=== PATIENT | female | born 1940 | race Caucasian/White ===

== ENCOUNTER 2024-06-08 13:23 | Inpatient (IN) | payer MEDICARE ==
[~2024-06-08] VITALS: Ht 154.9 cm; Wt 77.1 kg
[2024-06-08 13:51] VITALS: BP 115/65
[2024-06-08 14:04] LABS: BASO % 0.4 % (0.0-1.0); EOS # 0.1 10*3/uL (0.0-0.4); EOS % 2.5 % (1.0-4.0); HEMATOCRIT 31.2 % (37.0-47.0); LYMPH # 1.2 10*3/uL (1.3-4.4); LYMPH % 23.9 % (27.0-41.0); MEAN CELL VOLUME 95.4 fl (81.0-99.0); MEAN CORPUSCULAR HGB 30.6 pg (27.0-31.0); MEAN CORPUSCULAR HGB CONC 32.1 g/dl (33.0-37.0); MEAN PLATELET VOLUME 9.6 fl (9.6-12.3); MONO # 0.5 10*3/uL (0.1-1.0); MONO % 10.4 % (3.0-9.0); NEUT # 3.2 10*3/uL (2.3-7.9); NEUT % 62.4 % (47.0-73.0); PLATELET COUNT AUTOMATED 171 10*3/uL (130-400); RED BLOOD COUNT 3.27 10*6/uL (4.10-5.10); WHITE BLOOD COUNT 5.1 10*3/uL (4.8-10.8)
[2024-06-08 14:16] LABS: BILIRUBIN Negative (Negative); BLOOD Negative (Negative); CLARITY Clear (Clear); COLOR Yellow (Yellow); GLUCOSE Negative (Negative); KETONE Negative (Negative); LEUKO ESTERASE 3+ (Negative); NITRITE Positive (Negative); SPECIFIC GRAVITY 1.015 (1.001-1.030)
[2024-06-08 14:23] LABS: URINE AMPHETAMINES Negative (1000ng/ml); URINE BARBITURATES Negative (200ng/ml); URINE BENZODIAZEPINES Negative (200ng/ml); URINE CANNABINOIDS (THC) Negative (50ng/ml); URINE COCAINE Negative (300ng/ml); URINE METHADONE Negative (300ng/ml); URINE OPIATES Negative (300ng/ml); URINE PHENCYCLIDINE Negative (25ng/ml)
[2024-06-08 14:24] LABS: BUN 34 mg/dl (9-23); CHLORIDE 107 mmol/L (98-107); POTASSIUM 4.3 mmol/L (3.4-5.1)
[2024-06-08 14:34] LABS: ETHYL ALCOHOL < 3.0 mg/dl (<3)
[2024-06-08 14:39] LABS: BACTERIA 4+; WBC 31-40 wbc/hpf (0-5)
[2024-06-08] MEDS ORDERED: Sulfamethoxazole/Trimethopri 1 TAB TAB PO ONE (15:05)
[2024-06-08] MEDS ORDERED: ASPIRIN ADULT L81 M1 PO (16:13)
[2024-06-08] MEDS ORDERED: LIPITOR40 MG PO (16:15)
[2024-06-08] MEDS ORDERED: LASIX40 MG PO ×2 (16:15→16:19)
[2024-06-08] MEDS ORDERED: B121000 MCG/1 IM (16:27)
[2024-06-08] MEDS ORDERED: FORMOTEROL20 MCG/2 M NEB (16:31)
[2024-06-08] MEDS ORDERED: LOPRESSOR50 M1 PO (16:32)
[2024-06-08] MEDS ORDERED: KLOR-CON M2020 ME1 PO (16:35)
[2024-06-08] MEDS ORDERED: RIVASTIGMINE TAR3 M1 PO (16:38)
[2024-06-08] MEDS ORDERED: DEPAKOTE SPRIN125 MG PO (16:39)
[2024-06-08] MEDS ORDERED: TYLENOL325 M1 PO (16:41)
[2024-06-08] MEDS ORDERED: ALBUTEROL2.5 MG/0.5 INH (16:46)
[2024-06-08] MEDS ORDERED: ATIVAN1 MG PO ×2 (16:51→17:06)
[2024-06-08] MEDS ORDERED: ATIVAN0.5 MG PO (17:05)
[2024-06-08] MEDS ORDERED: MELATONIN3 MG PO (17:08)
[2024-06-08] MEDS ORDERED: ADT ROBITUSSIN237 M1 PO (17:12)
[2024-06-08] MEDS ORDERED: MILK OF MA400 MG/53 PO (17:15)
[2024-06-08] MEDS ORDERED: LORazepam 1 MG TAB PO PRN (17:20)
[2024-06-08] MEDS ORDERED: Albuterol Sulfate 2.5 MG/3 ML VIAL NEB PRN (19:05)
[2024-06-08] MEDS ORDERED: ACETAMINOPHEN 325 MG TAB PO PRN (19:05)
[2024-06-08] MEDS ORDERED: Albuterol Sulfate 2.5 MG/3 ML VIAL NEB SCH (19:15)
[2024-06-08] MEDS ORDERED: Ziprasidone Mesylate 20 MG VIAL IM PRN (19:25)
[2024-06-08] MEDS ORDERED: Water, Sterile 10 ML VIAL ONE (19:51)
[2024-06-08 20:00] VITALS: BP 107/73
[2024-06-08] MEDS ORDERED: DIVALPROEX SODIUM 125 MG CAP PO SCH (21:00)
[2024-06-08] MEDS ORDERED: Rivastigmine Tartrate 1.5 MG CAP PO SCH (21:09)
[2024-06-08] MEDS ORDERED: Memantine Hydrochloride 5 MG TAB PO SCH (22:00)
[2024-06-08] MEDS ORDERED: BREXPIPRAZOLE 1 MG TABLET PO SCH (22:00)
[2024-06-09 06:44] LABS: BASO % 0.4 % (0.0-1.0); EOS # 0.1 10*3/uL (0.0-0.4); EOS % 2.4 % (1.0-4.0); HEMATOCRIT 33.2 % (37.0-47.0); LYMPH # 1.1 10*3/uL (1.3-4.4); LYMPH % 23.7 % (27.0-41.0); MEAN CELL VOLUME 97.1 fl (81.0-99.0); MEAN CORPUSCULAR HGB 30.1 pg (27.0-31.0); MEAN PLATELET VOLUME 9.5 fl (9.6-12.3); MONO # 0.5 10*3/uL (0.1-1.0); MONO % 11.4 % (3.0-9.0); NEUT # 2.9 10*3/uL (2.3-7.9); NEUT % 61.9 % (47.0-73.0); PLATELET COUNT AUTOMATED 159 10*3/uL (130-400); RED BLOOD COUNT 3.42 10*6/uL (4.10-5.10); RED CELL DISTRI WIDTH 15.8 % (0-14.5); WHITE BLOOD COUNT 4.7 10*3/uL (4.8-10.8)
[2024-06-09 07:36] LABS: ALKALINE PHOSPHATASE 106 U/L (46-116); BUN 31 mg/dl (9-23); CHLORIDE 107 mmol/L (98-107); POTASSIUM 4.2 mmol/L (3.4-5.1); SGPT/ALT 11 U/L (5-49); TOTAL PROTEIN 5.8 gm/dL (6.0-8.0); VALPROIC ACID (DEPAKENE) 28.2 ug/ml (50-100)
[2024-06-09 08:38] LABS: VITAMIN D, 25-HYDROXY 67.9 ng/mL (30-100)
[2024-06-09 09:03] VITALS: BP 106/52
[2024-06-09] MEDS ORDERED: ASPIRIN, CHEWABLE 81 MG TAB PO SCH (10:00)
[2024-06-09] MEDS ORDERED: FUROSEMIDE 40 MG TAB PO SCH (10:00)
[2024-06-09] MEDS ORDERED: Metoprolol Tartrate 50 MG TAB PO SCH (10:00)
[2024-06-09] MEDS ORDERED: Magnesium Hydroxide 30 ML UDC PO SCH (10:00)
[2024-06-09] MEDS ORDERED: POTASSIUM CHLORIDE 20 MEQ TAB PO SCH (10:00)
[2024-06-09] MEDS ORDERED: ATORVASTATIN CALCIUM 40 MG TABLET PO SCH (10:00)
[2024-06-09] MEDS ORDERED: FORMOTEROL FUMARATE 20 MCG/2 ML SCH (10:00)
[2024-06-09] MEDS ORDERED: CEFDINIR 300 MG CAP PO SCH (12:25)
[2024-06-09] MEDS ORDERED: Albuterol Sulfate 2.5 MG/3 ML VIAL NEB PRN (16:10)
[2024-06-09] MEDS ORDERED: hydrOXYzine pamoate 25 MG CAP PO ONE (16:15)
[2024-06-09 20:00] VITALS: BP 104/81
[2024-06-09] MEDS ORDERED: Water, Sterile 10 ML VIAL ONE (20:34)
[2024-06-09] MEDS ORDERED: NYSTATIN 15 GM BOT T SCH (21:00)
[2024-06-10 08:32] VITALS: BP 112/67
[2024-06-10] MEDS ORDERED: Memantine Hydrochloride 5 MG TAB PO SCH (09:00)
[2024-06-10] MEDS ORDERED: VISTARIL25 MG PO (13:32)
[2024-06-10] MEDS ORDERED: hydrOXYzine pamoate 25 MG CAP PO PRN (13:35)
[2024-06-10 20:00] VITALS: BP 134/50
[2024-06-10] MEDS ORDERED: Water, Sterile 10 ML VIAL ONE (20:36)
[2024-06-11 07:51] VITALS: BP 111/54
[2024-06-11] MEDS ORDERED: LORazepam 0.5 MG TAB PO SCH (16:00)
[2024-06-11 20:00] VITALS: BP 140/80
[2024-06-11] MEDS ORDERED: BREXPIPRAZOLE 2 MG TABLET PO SCH (21:00)
[2024-06-12 08:00] VITALS: BP 138/72
[2024-06-12 20:00] VITALS: BP 116/55
[2024-06-12] MEDS ORDERED: Memantine Hydrochloride 10 MG TAB PO SCH (21:00)
[2024-06-12] MEDS ORDERED: Rivastigmine Tartrate 3 MG CAP PO SCH (21:00)
[2024-06-13 08:00] VITALS: BP 147/76
[2024-06-13] MEDS ORDERED: hydrOXYzine pamoate 25 MG CAP PO SCH (16:00)
[2024-06-13 20:00] VITALS: BP 118/40
[2024-06-14 08:13] VITALS: BP 120/50
[2024-06-14 20:00] VITALS: BP 106/34
[2024-06-15 08:00] VITALS: BP 102/67
[2024-06-15] MEDS ORDERED: BREXPIPRAZOLE 2 MG TABLET PO SCH (16:00)
[2024-06-15 20:00] VITALS: BP 99/56
[2024-06-16 06:28] LABS: BASO % 0.4 % (0.0-1.0); EOS # 0.1 10*3/uL (0.0-0.4); HEMATOCRIT 29.9 % (37.0-47.0); LYMPH # 1.2 10*3/uL (1.3-4.4); MEAN CELL VOLUME 97.4 fl (81.0-99.0); MEAN CORPUSCULAR HGB 30.3 pg (27.0-31.0); MEAN CORPUSCULAR HGB CONC 31.1 g/dl (33.0-37.0); MEAN PLATELET VOLUME 9.6 fl (9.6-12.3); MONO # 0.6 10*3/uL (0.1-1.0); MONO % 12.1 % (3.0-9.0); NEUT # 3.2 10*3/uL (2.3-7.9); NEUT % 62.1 % (47.0-73.0); PLATELET COUNT AUTOMATED 166 10*3/uL (130-400); RED BLOOD COUNT 3.07 10*6/uL (4.10-5.10); RED CELL DISTRI WIDTH 16.2 % (0-14.5); WHITE BLOOD COUNT 5.1 10*3/uL (4.8-10.8)
[2024-06-16 06:35] LABS: TOTAL PROTEIN 5.7 gm/dL (6.0-8.0)
[2024-06-16 20:00] VITALS: BP 138/68
[2024-06-17 07:52] VITALS: BP 120/84
[2024-06-17 19:15] VITALS: BP 120/53
[2024-06-18] MEDS ORDERED: FUROSEMIDE 40 MG TAB PO SCH (09:00)
[2024-06-18 09:27] VITALS: BP 135/96
[2024-06-18] MEDS ORDERED: Loperamide Hydrochloride 2 MG CAP PO PRN (10:10)
[2024-06-18 20:00] VITALS: BP 106/79
[2024-06-19 07:49] VITALS: BP 127/48
[2024-06-19 20:00] VITALS: BP 119/61
[2024-06-20 07:14] LABS: BUN 28 mg/dl (9-23); CHLORIDE 108 mmol/L (98-107); POTASSIUM 4.1 mmol/L (3.4-5.1)
[2024-06-20 08:00] VITALS: BP 133/44
[2024-06-20] MEDS ORDERED: HYDROXYZINE PAM25 M1 PO (10:32)
[2024-06-20] MEDS ORDERED: REXULTI2 MG PO (10:32)
[2024-06-20] MEDS ORDERED: MEMANTINE HCL10 MG PO (10:32)
[2024-06-20] MEDS ORDERED: RIVASTIGMINE TAR3 M1 PO (10:32)
[2024-06-20] MEDS ORDERED: LASIX40 MG PO (11:11)
[2024-07-06] MEDS ORDERED: CYANOCOBALAMIN 1,000 MCG/ML VIAL IM SCH (10:00)
== END 2024-06-20 13:56 | DRG 883 ==
LOC: ED 13:23 → 3N 15:07
PROVIDERS: Counselor Professional; Internal Medicine; Physician Assistant Medical; ADMIT Psychiatry & Neurology Psychiatry; ATTEND Psychiatry & Neurology Psychiatry
PROC: GZHZZZZ Group Psychotherapy (ICD-10-PCS; principal; 2024-06-08)
PROC: GZ51ZZZ Individual Psychotherapy, Behavioral (ICD-10-PCS; 2024-06-08)
PROC: 0HBRXZZ Excision of Toe Nail, External Approach (ICD-10-PCS; 2024-06-13)
PROC: 0HBRXZZ Excision of Toe Nail, External Approach (ICD-10-PCS; 2024-06-13)
PROC: 0HBRXZZ Excision of Toe Nail, External Approach (ICD-10-PCS; 2024-06-13)
PROC: 0HBRXZZ Excision of Toe Nail, External Approach (ICD-10-PCS; 2024-06-13)
PROC: 0HBRXZZ Excision of Toe Nail, External Approach (ICD-10-PCS; 2024-06-13)
PROC: 0HBRXZZ Excision of Toe Nail, External Approach (ICD-10-PCS; 2024-06-13)
PROC: 0HBRXZZ Excision of Toe Nail, External Approach (ICD-10-PCS; 2024-06-13)
PROC: 0HBRXZZ Excision of Toe Nail, External Approach (ICD-10-PCS; 2024-06-13)
PROC: 0HBRXZZ Excision of Toe Nail, External Approach (ICD-10-PCS; 2024-06-13)
PROC: 0HBRXZZ Excision of Toe Nail, External Approach (ICD-10-PCS; 2024-06-13)
DX: F63.81 Intermittent explosive disorder (principal); I11.0 Hypertensive heart disease with heart failure; I50.22 Chronic systolic (congestive) heart failure; N30.00 Acute cystitis without hematuria; F02.811 Dementia in other diseases classified elsewhere, unspecified severity, with agitation; L89.896 Pressure-induced deep tissue damage of other site; I48.91 Unspecified atrial fibrillation; G30.9 Alzheimer's disease, unspecified; Z66 Do not resuscitate; F22 Delusional disorders; E11.9 Type 2 diabetes mellitus without complications; E78.5 Hyperlipidemia, unspecified; J44.9 Chronic obstructive pulmonary disease, unspecified; E03.9 Hypothyroidism, unspecified; E55.9 Vitamin D deficiency, unspecified; Z88.5 Allergy status to narcotic agent; Z88.8 Allergy status to other drugs, medicaments and biological substances; Z79.82 Long term (current) use of aspirin; Z79.899 Other long term (current) drug therapy; Z79.51 Long term (current) use of inhaled steroids; Z51.5 Encounter for palliative care; Z79.1 Long term (current) use of non-steroidal anti-inflammatories (NSAID)